=== PATIENT | male | born 1970 | race Caucasian/White ===

== ENCOUNTER 2023-01-09 07:00 | Day surgery (SDC) | payer OTHER ==
[~2023-01-09] VITALS: Ht 157.5 cm; Wt 85.9 kg
[~2023-01-09 07:00] MED LIST: ADDE30CA3 PO; AMLO1TAB25 PO; ASPI81TA26 PO; ATOR40TA75 PO; FLOM0.4C39 PO; HYDR-3490 PO; LOSA100T46 PO; METF500T13 PO; NS 1,000 ML IV ONE; OMEP40CA4 PO; PROZ40CA PO; SEMA2PEN SQ; WELLTAB40 PO
[2023-01-09] MEDS ORDERED: propofoL 200 MG/20 ML VIAL As Ordered ONE (07:15)
[2023-01-09] MEDS ORDERED: LIDOCAINE 2% 100MG/5ML SDV (FOR ANES.) As Ordered ONE (07:15)
[2023-01-09 08:28] VITALS: BP 136/84; O2SAT 96
== END 2023-01-09 08:33 | disposition home or self-care (01) ==
LOC: M OPP 07:00
PROVIDERS: ATTEND Internal Medicine Gastroenterology
DX: D12.6 Benign neoplasm of colon, unspecified (principal); K57.30 Diverticulosis of large intestine without perforation or abscess without bleeding; K64.8 Other hemorrhoids; K21.9 Gastro-esophageal reflux disease without esophagitis; K22.89 Other specified disease of esophagus; K29.70 Gastritis, unspecified, without bleeding; Z01.818 Encounter for other preprocedural examination; E66.01 Morbid (severe) obesity due to excess calories; Z68.35 Body mass index [BMI] 35.0-35.9, adult